=== PATIENT | male | born 1955 | race Caucasian/White ===

== ENCOUNTER 2017-05-15 06:39 | Day surgery (SDC) | payer BC ==
[2017-05-15] MEDS ORDERED: Lactated Ringers 1,000 ML IV SCH (07:15)
[2017-05-15] MEDS ORDERED: Sodium Chloride 0.9% 10 ML Syringe FLUSH PRN (07:15)
[2017-05-15] MEDS ORDERED: Midazolam 1 MG/ML 2 ML SDV IV ONE (08:45)
[2017-05-15] MEDS ORDERED: Propofol 200 MG/20 ML SDV IV ONE (08:45)
--- NOTE | 2017-05-15 09:51 | OR ---
DATE OF OPERATION: 05/15/2017 SURGEON: Fish Dickerson MD PROCEDURE PERFORMED: Screening colonoscopy. PREOPERATIVE DIAGNOSIS: Screening colonoscopy. POSTOPERATIVE DIAGNOSIS: Normal colon. INDICATIONS FOR PROCEDURE: This is a 61-year-old white male who presents for a screening colonoscopy. He was offered and accepted same. DESCRIPTION OF OPERATION: After an excellent IV sedation was administered, digital rectal exam was performed. No marked abnormality was noted. The flexible colonoscope was inserted and advanced to the cecum without difficulty. The following findings were noted. Ascending colon, unremarkable. Transverse colon, unremarkable. Descending colon, unremarkable. Sigmoid and rectum unremarkable. Colon was deflated as the scope was removed. The patient tolerated the procedure well and was taken to recovery room in good condition. /[id number] /[id number]
[2017-05-15 09:52] VITALS: BP 112/80
== END 2017-05-15 10:11 | disposition home or self-care (01) ==
LOC: FB.SDS 06:39
PROVIDERS: ATTEND Surgery
DX: Z12.11 Encounter for screening for malignant neoplasm of colon (principal); Z79.899 Other long term (current) drug therapy
CPT/HCPCS: 45378; J2250; J2704; J7120